=== PATIENT | female | born 1980 | race Caucasian/White ===

== ENCOUNTER 2017-01-30 08:00 | Outpatient (CLI) | payer OTHER ==
[2017-01-30 19:15] LABS: BASOPHILS % (AUTO) 0.7 %; EOSINOPHILS # (AUTO) 0.3 10^3/uL (0.0-0.7); EOSINOPHILS % (AUTO) 5.2 %; HCT - HEMATOCRIT 42.3 % (37.0-47.0); HGB - HEMOGLOBIN 14.2 g/dL (12.0-16.0); LYMPHOCYTES # (AUTO) 2.2 10^3/uL (1.5-3.5); LYMPHOCYTES % (AUTO) 38.8 %; MEAN CORPUSCULAR HGB CONC 33.6 g/dL (32.0-36.0); MEAN CORPUSCULAR VOLUME 89.1 fL (81.0-99.0); MEAN PLATELET VOLUME 8.2 fL (7.9-10.8); MONOCYTES # (AUTO) 0.6 10^3/uL (0.0-1.0); NEUTROPHILS # (AUTO) 2.6 10^3/uL (1.5-6.6); NEUTROPHILS % (AUTO) 45.3 %; RED BLOOD COUNT 4.75 10^6/uL (4.20-5.40); RED CELL DISTRIBUTION WIDTH 12.1 % (12.0-15.0); UNCORRECTED WHITE BLOOD COUNT 5.7 x10^3/uL; WHITE BLOOD COUNT 5.7 x10^3/uL (4.8-10.8)
[2017-01-30 19:20] LABS: ALBUMIN/GLOBULIN RATIO 1.3 (1.0-2.2); BILIRUBIN,TOTAL 0.6 mg/dL (0.2-1.0); BUN - BLOOD UREA NITROGEN 12 mg/dL (6-20); CALCIUM 9.2 mg/dL (8.5-10.3); CARBON DIOXIDE - CO2 27 mmol/L (21-32); CHLORIDE 104 mmol/L (101-111); CREATININE 0.7 mg/dL (0.4-1.0); GFR - MDRD 94 (>89); GLUCOSE 95 mg/dL (70-100); LIPASE 27 U/L (22-51); POTASSIUM 3.8 mmol/L (3.5-5.0); SODIUM 138 mmol/L (135-145); TOTAL PROTEIN 7.3 g/dL (6.7-8.2)
== END 2017-01-30 08:01 ==
LOC: LAB.WCP 08:00
PROVIDERS: ATTEND Family Medicine
DX: R19.7 Diarrhea, unspecified (principal)
CPT/HCPCS: 36415; 80053; 83690; 84443; 85025

== ENCOUNTER 2017-02-08 14:39 | Outpatient (CLI) | payer OTHER ==
[2017-02-08 19:44] LABS: H. PYLORIS ANTIGEN STL NEGATIVE (Negative)
== END 2017-02-08 14:40 | disposition home or self-care (01) ==
LOC: LAB.R 14:39
PROVIDERS: ATTEND Family Medicine
DX: R19.7 Diarrhea, unspecified (principal)
CPT/HCPCS: 87338

== ENCOUNTER 2017-04-25 19:15 | Emergency (ER) | payer OTHER ==
[2017-04-25 19:56] LABS: BASOPHILS # (AUTO) 0.1 10^3/uL (0.0-0.1); BASOPHILS % (AUTO) 0.5 %; EOSINOPHILS # (AUTO) 0.2 10^3/uL (0.0-0.7); EOSINOPHILS % (AUTO) 1.7 %; HGB - HEMOGLOBIN 14.6 g/dL (12.0-16.0); LYMPHOCYTES % (AUTO) 14.1 %; MEAN CORPUSCULAR HEMOGLOBIN 28.9 pg (27.0-31.0); MEAN CORPUSCULAR HGB CONC 32.8 g/dL (32.0-36.0); MEAN CORPUSCULAR VOLUME 88.1 fL (81.0-99.0); MEAN PLATELET VOLUME 7.5 fL (7.9-10.8); MONOCYTES # (AUTO) 0.8 10^3/uL (0.0-1.0); MONOCYTES % (AUTO) 5.3 %; NEUTROPHILS # (AUTO) 11.2 10^3/uL (1.5-6.6); NEUTROPHILS % (AUTO) 78.4 %; PLT - PLATELET COUNT 231 10^3/uL (130-450); RED BLOOD COUNT 5.06 10^6/uL (4.20-5.40); RED CELL DISTRIBUTION WIDTH 12.7 % (12.0-15.0); WHITE BLOOD COUNT 14.3 x10^3/uL (4.8-10.8)
[2017-04-25 20:09] LABS: ALBUMIN 4.2 g/dL (3.2-5.5); ALBUMIN/GLOBULIN RATIO 1.5 (1.0-2.2); BILIRUBIN,TOTAL 0.5 mg/dL (0.2-1.0); CALCIUM 9.3 mg/dL (8.5-10.3); CREATININE 0.6 mg/dL (0.4-1.0)
[2017-04-25] MEDS ORDERED: SODIUM CHLORIDE 0.9% 1,000 ML IV ONE (20:49)
[2017-04-25 20:59] LABS: BILIRUBIN,URINE NEGATIVE (NEGATIVE); GLUCOSE, URINE (UA) NEGATIVE (NEGATIVE); KETONES,URINE (UA) NEGATIVE (NEGATIVE); LEUKOCYTE ESTERASE, URINE NEGATIVE (NEGATIVE); NITRITE,URINE NEGATIVE (NEGATIVE); OCCULT BLOOD,URINE NEGATIVE (NEGATIVE); PH,URINE 6.5 PH (5.0-7.5); PROTEIN,URINE NEGATIVE (NEGATIVE); UROBILINOGEN,URINE 0.2 (NORMAL) E.U./dL (NORMAL)
[2017-04-25 21:00] LABS: CLARITY,URINE CLEAR (CLEAR)
[2017-04-25 21:01] LABS: HCG UR QUAL NEGATIVE
--- NOTE | 2017-04-25 21:33 | CT Report ---
EXAM: CT HEAD EXAM DATE: 04/25/2017 09:10 PM. CLINICAL HISTORY: Head trauma. Questionable seizure. COMPARISON: None. TECHNIQUE: Multiaxial CT images were obtained from the foramen magnum to the vertex. Reformats: Coron al. IV contrast: None. In accordance with CT protocol optimization, one or more of the following dose reduction techniques w ere utilized for this exam: automated exposure control, adjustment of mA and/or KV based on patient s ize, or use of iterative reconstructive technique. FINDINGS: Parenchyma: No intraparenchymal hemorrhage. No evidence of mass, midline shift, or CT findings of inf arction. Singleton-white differentiation is distinct. Extraaxial Spaces: Normal for age. No subdural or epidural collections identified. Ventricles: Normal in size and position. Sinuses and Orbits: Imaged paranasal sinuses, orbits, and mastoids show no significant abnormality. Bones: No evidence of fracture or calvarial defect. Other: None. IMPRESSION: Normal head CT. [facility] Referring Provider Line: [phone] SITE ID: [id number]
[2017-04-25 21:38] VITALS: BP 109/71
--- NOTE | 2017-04-25 21:45 | ED Physician Documentation ---
PD HPI SYNCOPE - Stated complaint Stated Complaint: PASSED OUT/MEMORY LOSS - Chief complaint Chief Complaint: Neuro - History obtained from History obtained from: Patient, Family - History of Present Illness Witnessed: Witnessed Timing - onset: Today Duration: Seconds Preceding symptoms: Diaphoresis, Light headed Associated symptoms: No: Seizure, Incontinant of urine Contributing factors: No: Recent med change Injury occurred: Fell, Head injury Similar symptoms before: No diagnosis Recently seen: Not recently seen - Additional information Additional information: Patient is a 37 year old female with a history of ibs and multiple episode of what sound like orthostatic hypotension who is presenting to the emergency department for a syncopal episode. According to patient and patient was in the bathroom having a bowel movement when she started to get dizzy and diaphoretic. Patient called out to her . He was going to get the patient up to walk her to bed when she passed out and fell backwards hitting her head on the towel rack. He states that she was out for maybe 30 seconds and her arms flexed and shook. Review of Systems Constitutional: denies: Fever, Chills Eyes: denies: Photophobia Ears: reports: Reviewed and negative Nose: reports: Reviewed and negative Throat: reports: Reviewed and negative Cardiac: denies: Chest pain / pressure, Palpitations, Pedal edema, Calf pain Respiratory: denies: Dyspnea GI: reports: Abdominal Pain, Nausea, Diarrhea. denies: Vomiting : reports: Reviewed and negative Skin: denies: Abrasion (s) Musculoskeletal: denies: Neck pain Neurologic: reports: Syncope, Head injury Immunocompromised: denies: Immunocompromised PD PAST MEDICAL HISTORY - Past Medical History Past Medical History: Yes Other Past Medical History: Syncope in the past; IBS - Past Surgical History Past Surgical History: Yes - Present Medications Home Medications: Ambulatory Orders Medication Instructions Recorded Confirmed Lactobacillus Acidophilus 1 each PO 04/25/17 [Probiotic Acidophilus] - Allergies Allergies/Adverse Reactions: Allergies Allergy/AdvReac Type Severity Reaction Status Date / Time No Known Drug Allergies Allergy Verified 04/25/17 19:28 - Social History Does the pt smoke?: No Smoking Status: Never smoker Does the pt drink ETOH?: Yes Does the pt have substance abuse?: No - Immunizations Immunizations are current?: Yes - POLST Patient has POLST: No PD ED PE NORMAL - Vitals Vital signs reviewed: Yes - General General: Alert and oriented X 3, No acute distress - Neck Neck: No bony TTP - Cardiac Cardiac: RRR, No murmur - Respiratory Respiratory: No respiratory distress - Abdomen Abdomen: Soft, Non tender, Non distended - Derm Derm: Normal color, Warm and dry, No rash - Extremities Extremities: No deformity, Normal ROM s pain, No edema, No calf tenderness / cord - Neuro Neuro: Alert and oriented X 3, sweat box attendant 2-12 intact, No motor deficit, No sensory deficit, Normal speech Eye Opening: Spontaneous Motor: Obeys Commands Verbal: Oriented GCS Score: 15 PD ED PE EXPANDED - HEENT HEENT: Atraumatic, Dry mucous membranes Results - Vitals Vitals: Vital Signs - 24 hr 04/25/17 04/25/17 04/25/17 19:17 19:48 20:15 Heart Rate 92 95 84 Respiratory 18 12 16 Rate Blood Pressure 128/89 H 110/79 108/77 O2 Saturation 100 100 100 04/25/17 04/25/17 21:37 21:52 Heart Rate 83 87 Respiratory 12 16 Rate Blood Pressure 109/71 109/71 O2 Saturation 100 100 Oxygen O2 Source Room air - EKG (time done) 1924 Rate: Rate (enter#) (72) Rhythm: NSR [place]: Normal Intervals: Normal CO QRS: Normal Ischemia: Normal ST segments Compare to prior EKG: Old EKG unavailable - Labs Labs: Laboratory Tests 04/25/17 04/25/17 04/25/17 19:29 19:50 19:50 WBC 14.3 H RBC 5.06 Hgb 14.6 Hct 44.6 MCV 88.1 MCH 28.9 MCHC 32.8 RDW 12.7 Plt Count 231 MPV 7.5 L Neut # 11.2 H Lymph # 2.0 [place] # 0.8 Eos # 0.2 Baso # 0.1 Absolute Nucleated RBC 0.00 Nucleated RBC % 0.0 Sodium 137 Potassium 3.4 L Chloride 103 Carbon Dioxide 25 Anion Gap 9.0 BUN 13 Creatinine 0.6 Estimated GFR (MDRD) 111 Glucose 105 H POC Whole Bld Glucose 83 Calcium 9.3 Total Bilirubin 0.5 AST 18 ALT 15 Alkaline Phosphatase 56 Total Protein 7.0 Albumin 4.2 Globulin 2.8 Albumin/Globulin Ratio 1.5 Lipase 15 L Urine Color Urine Clarity Urine pH Ur Specific [place] Urine Protein Urine Glucose (UA) Urine Ketones Urine Occult Blood Urine Nitrite Urine Bilirubin Urine Urobilinogen Ur Leukocyte Esterase Ur Microscopic Review Urine Culture Comments Urine HCG, Qual 04/25/17 20:50 WBC RBC Hgb Hct MCV MCH MCHC RDW Plt Count MPV Neut # Lymph # [place] # Eos # Baso # Absolute Nucleated RBC Nucleated RBC % Sodium Potassium Chloride Carbon Dioxide Anion Gap BUN Creatinine Estimated GFR (MDRD) Glucose POC Whole Bld Glucose Calcium Total Bilirubin AST ALT Alkaline Phosphatase Total Protein Albumin Globulin Albumin/Globulin Ratio Lipase Urine Color YELLOW Urine Clarity CLEAR Urine pH 6.5 Ur Specific [place] <=1.005 Urine Protein NEGATIVE Urine Glucose (UA) NEGATIVE Urine Ketones NEGATIVE Urine Occult Blood NEGATIVE Urine Nitrite NEGATIVE Urine Bilirubin NEGATIVE Urine Urobilinogen 0.2 (NORMAL) Ur Leukocyte Esterase NEGATIVE Ur Microscopic Review NOT INDICATED Urine Culture Comments NOT INDICATED Urine HCG, Qual NEGATIVE - Rads (name of study) ct head Radiology: Final report received (normal) PD MEDICAL DECISION MAKING - ED course Complexity details: reviewed old records, reviewed results, re-evaluated patient , considered differential, d/w patient, d/w family ED course: Patient was seen and examined at bedside. ekg was performed and was within normal limits. IV access was gained and labs were drawn. patient was treated with a fluid bolus. CT head was ordered due to the fall and the history of possible seizure disorder and was within normal limits. patient remained asymptomatic while in the emergency department and symptoms were likely vaso- vagal in nature. Patient and were educated on the findings and follow up. patient required no further work up and was stable for discharge with outpatient follow up. Departure - Departure Disposition: 01 Home, Self Care Clinical Impression: Vaso vagal episode Condition: Good Instructions: ED Syncope Vasovagal Follow-Up: Jesse Crowe MD [Primary Care Provider] - Within 3 Days Comments: Your diagnostics today were within normal limits. Your symptoms were likely secondary to a vaso vagal episode. It is not life threatening and doesn't normally indicate any underlying conditions. Make sure you stay well hydrated and take your time between changing positions. As far as your irregular periods go you should follow up with your OB if they don't normalize within the next few months. You may return to the emergency department at any time for new , worsening or uncontrollable symptoms. Discharge Date/Time: 04/25/17 21:53
== END 2017-04-25 21:53 | disposition home or self-care (01) ==
LOC: ED 19:15
DX: R55 Syncope and collapse (principal)
CPT/HCPCS: 36415; 70450; 80053; 81001; 81003; 81025; 83690; 85025; 87086; 93005; 96360; 99284

== ENCOUNTER 2017-09-22 18:39 | Emergency (ER) | payer OTHER ==
[2017-09-22 19:13] LABS: BASOPHILS % (AUTO) 0.5 %; EOSINOPHILS # (AUTO) 0.1 10^3/uL (0.0-0.7); EOSINOPHILS % (AUTO) 1.4 %; HGB - HEMOGLOBIN 14.6 g/dL (12.0-16.0); LYMPHOCYTES # (AUTO) 2.3 10^3/uL (1.5-3.5); LYMPHOCYTES % (AUTO) 25.1 %; MEAN CORPUSCULAR HEMOGLOBIN 30.2 pg (27.0-31.0); MEAN CORPUSCULAR VOLUME 88.7 fL (81.0-99.0); MEAN PLATELET VOLUME 7.3 fL (7.9-10.8); MONOCYTES # (AUTO) 0.6 10^3/uL (0.0-1.0); MONOCYTES % (AUTO) 7.2 %; NEUTROPHILS # (AUTO) 5.9 10^3/uL (1.5-6.6); NEUTROPHILS % (AUTO) 65.8 %; PLT - PLATELET COUNT 219 10^3/uL (130-450); RED BLOOD COUNT 4.85 10^6/uL (4.20-5.40); RED CELL DISTRIBUTION WIDTH 13.1 % (12.0-15.0)
[2017-09-22 19:27] LABS: ALBUMIN 4.5 g/dL (3.2-5.5); ALBUMIN/GLOBULIN RATIO 1.6 (1.0-2.2); BILIRUBIN,TOTAL 0.6 mg/dL (0.2-1.0); CALCIUM 9.4 mg/dL (8.5-10.3); CREATININE 0.8 mg/dL (0.4-1.0); TOTAL PROTEIN 7.4 g/dL (6.7-8.2)
--- NOTE | 2017-09-22 20:05 | XRAY Report ---
Procedure Date: 09/22/2017 Accession Number: [id number] / [id number] Procedure: XR - Chest 2 View X-Ray CPT Code: 98717 FULL RESULT: EXAM: CHEST RADIOGRAPHY EXAM DATE: 09/22/2017 07:42 PM. CLINICAL HISTORY: Chest pain, soa. COMPARISON: None. TECHNIQUE: 2 views. FINDINGS: Lungs/Pleura: No focal opacities evident. No pleural effusion. No pneumothorax. Normal volumes. Mediastinum: Heart and mediastinal contours are unremarkable. Other: None. IMPRESSION: Normal 2-view chest radiography. [facility]
[2017-09-22 20:43] VITALS: BP 105/72
[2017-09-22 20:49] LABS: BILIRUBIN,URINE NEGATIVE (NEGATIVE); GLUCOSE, URINE (UA) NEGATIVE (NEGATIVE); KETONES,URINE (UA) NEGATIVE (NEGATIVE); LEUKOCYTE ESTERASE, URINE TRACE (NEGATIVE); NITRITE,URINE NEGATIVE (NEGATIVE); OCCULT BLOOD,URINE TRACE-LYSE (NEGATIVE); PH,URINE 6.5 PH (5.0-7.5); PROTEIN,URINE NEGATIVE (NEGATIVE); UROBILINOGEN,URINE 0.2 (NORMAL) E.U./dL (NORMAL)
[2017-09-22 20:50] LABS: CLARITY,URINE CLEAR (CLEAR); HCG UR QUAL NEGATIVE
[2017-09-22 20:59] LABS: BACTERIA,URINE Rare /HPF (None Seen); RBC,URINE None Seen /HPF (0-5); SQUAMOUS EPITHELIAL CELL,UR MOD Squamous (<= Few)
[2017-09-22] MEDS ORDERED: PHENAZOPYRIDINE 100 MG TABLET PO STA (21:08)
[2017-09-22] MEDS ORDERED: SULFAMETH/TRIMETH DS 800/160 MG TABLET PO STA (21:08)
--- NOTE | 2017-09-22 21:11 | ED Physician Documentation ---
History of Present Illness - Stated complaint Stated Complaint: CHEST PX - Chief complaint Chief Complaint: Cardiac - History obtained from History obtained from: Patient, Family - History of Present Illness Timing: Today - Additonal information Additional information: patient is a 37 year old female with no significant past medical history who is presenting to the emergency department for intermittent chest pain. Patient has had the symptoms a few times before. they normally come when she is stressed out. Patient reports that she gets some tingling in her fingers as well with the symptoms. Patient denies any significant cardiac history in the past. Review of Systems Constitutional: denies: Fever, Chills Eyes: reports: Reviewed and negative Ears: reports: Reviewed and negative Cardiac: reports: Chest pain / pressure, Palpitations. denies: Pedal edema Respiratory: denies: Dyspnea, Cough GI: denies: Nausea, Vomiting : reports: Dysuria, Frequency Skin: denies: Rash, Lesions Musculoskeletal: denies: Neck pain Neurologic: denies: Generalized weakness, Focal weakness, Numbness PD PAST MEDICAL HISTORY - Past Medical History Past Medical History: Yes Psych: Anxiety - Past Surgical History Past Surgical History: Yes - Present Medications Home Medications: Ambulatory Orders Medication Instructions Recorded Confirmed Phenazopyridine HCl [Pyridium] 200 mg PO TID PRN #6 tablet 09/22/17 Sulfamethox/Trimeth 800/160 1 each PO BID #14 tablet 09/22/17 [Bactrim Ds 800/160] - Allergies Allergies/Adverse Reactions: Allergies Allergy/AdvReac Type Severity Reaction Status Date / Time No Known Drug Allergies Allergy Verified 09/22/17 18:53 - Social History Does the pt smoke?: No Smoking Status: Never smoker Does the pt drink ETOH?: Yes Does the pt have substance abuse?: No - Immunizations Immunizations are current?: Yes - POLST Patient has POLST: No PD ED PE NORMAL - Vitals Vital signs reviewed: Yes - General General: Alert and oriented X 3, No acute distress - HEENT HEENT: Atraumatic - Neck Neck: Supple, no meningeal sign - Cardiac Cardiac: RRR, No murmur - Respiratory Respiratory: No respiratory distress, Clear bilaterally - Abdomen Abdomen: Soft, Non tender, Non distended - Derm Derm: Normal color, Warm and dry, No rash - Extremities Extremities: No deformity - Neuro Neuro: Alert and oriented X 3, No motor deficit, Normal speech Eye Opening: Spontaneous - Psych Psych: Normal mood PD ED PE EXPANDED - General General: Alert, No acute distress Results - Vitals Vitals: Vital Signs - 24 hr 09/22/17 09/22/17 09/22/17 18:50 19:22 20:38 Temperature 36.6 C Heart Rate 94 102 H 90 Respiratory 18 15 18 Rate Blood Pressure 117/84 H 105/82 H 113/78 O2 Saturation 100 97 98 09/22/17 20:42 Temperature 36.5 C Heart Rate 94 Respiratory 18 Rate Blood Pressure 105/72 O2 Saturation 100 Oxygen O2 Source Room air - Labs Labs: Laboratory Tests 09/22/17 09/22/17 09/22/17 19:07 19:07 19:07 WBC 9.0 RBC 4.85 Hgb 14.6 Hct 43.0 MCV 88.7 MCH 30.2 MCHC 34.0 RDW 13.1 Plt Count 219 MPV 7.3 L Neut # (Auto) 5.9 Lymph # (Auto) 2.3 [place] # (Auto) 0.6 Eos # (Auto) 0.1 Baso # (Auto) 0.0 Absolute Nucleated RBC 0.00 Nucleated RBC % 0.0 Sodium 139 Potassium 3.4 L Chloride 104 Carbon Dioxide 26 Anion Gap 9.0 BUN 15 Creatinine 0.8 Estimated GFR (MDRD) 80 L Glucose 107 H Calcium 9.4 Total Bilirubin 0.6 AST 18 ALT 15 Alkaline Phosphatase 67 Troponin I < 0.04 Total Protein 7.4 Albumin 4.5 Globulin 2.9 Albumin/Globulin Ratio 1.6 Lipase 28 Urine Color Urine Clarity Urine pH Ur Specific [place] Urine Protein Urine Glucose (UA) Urine Ketones Urine Occult Blood Urine Nitrite Urine Bilirubin Urine Urobilinogen Ur Leukocyte Esterase Urine RBC Urine WBC Ur Squamous Epith Cells Urine Bacteria Ur Microscopic Review Urine Culture Comments Urine HCG, Qual 09/22/17 20:41 WBC RBC Hgb Hct MCV MCH MCHC RDW Plt Count MPV Neut # (Auto) Lymph # (Auto) [place] # (Auto) Eos # (Auto) Baso # (Auto) Absolute Nucleated RBC Nucleated RBC % Sodium Potassium Chloride Carbon Dioxide Anion Gap BUN Creatinine Estimated GFR (MDRD) Glucose Calcium Total Bilirubin AST ALT Alkaline Phosphatase Troponin I Total Protein Albumin Globulin Albumin/Globulin Ratio Lipase Urine Color COLORLESS Urine Clarity CLEAR Urine pH 6.5 Ur Specific [place] <=1.005 Urine Protein NEGATIVE Urine Glucose (UA) NEGATIVE Urine Ketones NEGATIVE Urine Occult Blood TRACE-LYSE Urine Nitrite NEGATIVE Urine Bilirubin NEGATIVE Urine Urobilinogen 0.2 (NORMAL) Ur Leukocyte Esterase TRACE H Urine RBC None Seen Urine WBC 4-5 Ur Squamous Epith Cells MOD Squamous H Urine Bacteria Rare Ur Microscopic Review INDICATED Urine Culture Comments NOT INDICATED Urine HCG, Qual NEGATIVE PD MEDICAL DECISION MAKING - ED course Complexity details: reviewed old records, reviewed results, re-evaluated patient , considered differential, d/w patient ED course: Patient was seen and examined at bedside. patient was well appearing and in no distress. patient's ekg was unchanged and chest x-ray was negative. Patient's diagnostics were within normal limits aside from signs of a uti. Patient was treated with bactrim and pyridium. Patient had a HEART score of 1 and perc 0. Patient's symptoms were likely in part psychological. patient and were made aware of this. Patient was given detailed discharge and follow up instructions and patient was stable for discharge with outpatient follow up. - Sepsis Event Vital Signs: Vital Signs - 24 hr 09/22/17 09/22/17 09/22/17 18:50 19:22 20:38 Temperature 36.6 C Heart Rate 94 102 H 90 Respiratory 18 15 18 Rate Blood Pressure 117/84 H 105/82 H 113/78 O2 Saturation 100 97 98 09/22/17 20:42 Temperature 36.5 C Heart Rate 94 Respiratory 18 Rate Blood Pressure 105/72 O2 Saturation 100 Oxygen O2 Source Room air Departure - Departure Disposition: 01 Home, Self Care Clinical Impression: UTI (urinary tract infection), Anxiety Condition: Good Instructions: ED UTI Cystitis Female Follow-Up: Jesse Crowe MD [Primary Care Provider] - Within 3 Days Prescriptions: Phenazopyridine HCl [Pyridium] 200 mg PO TID PRN #6 tablet PRN Reason: dysuria Sulfamethox/Trimeth 800/160 [Bactrim Ds 800/160] 1 each PO BID #14 tablet Comments: Your diagnostics today showed a developing uti, but otherwise there were no significant abnormalities. You will be on a course of antibiotics, taking your first dose today. You should follow up with your doctor if your symptoms persist. I would recommend that you follow up with your doctor for an echocardiogram for your passing out episodes. You may return to the emergency department at any time for new, worsening or uncontrollable symptoms. Discharge Date/Time: 09/22/17 21:17
== END 2017-09-22 21:17 | disposition home or self-care (01) ==
LOC: ED 18:39
DX: N39.0 Urinary tract infection, site not specified (principal); F41.9 Anxiety disorder, unspecified
CPT/HCPCS: 36415; 71046; 80053; 81001; 81025; 83690; 84484; 85025; 93005; 99283; 99284; A9270; 81003; 87086

== ENCOUNTER 2017-11-26 08:00 | Outpatient (CLI) | payer OTHER | END 2017-11-26 08:01 | disposition home or self-care (01) | LOC: LAB.R 08:00 | PROVIDERS: ATTEND Registered Nurse | DX: R10.2 Pelvic and perineal pain (principal) | CPT/HCPCS: 87086 ==

== ENCOUNTER 2017-12-03 18:46 | Outpatient (CLI) | payer OTHER ==
--- NOTE | 2017-12-04 11:57 | Ultrasound Report ---
Reason: PELVIC AND PERINEAL PAIN Procedure Date: 12/03/2017 Accession Number: [id number] / [id number] Procedure: US - Pelvic w/Transvaginal CPT Code: FULL RESULT: EXAM: PELVIC ULTRASOUND EXAM DATE: 12/03/2017 07:05 PM. CLINICAL HISTORY: Pelvic and perineal pain. COMPARISON: None. TECHNIQUE: Realtime transabdominal pelvic scan performed to identify the uterus and adnexa and as an overview of other pelvic structures, followed by transvaginal scan to provide greater detail of the uterus and adnexa, with static image documentation. FINDINGS: Uterus: 8.8 x 4.6 x 5.4 cm, volume 113 cc. Anteverted position. Normal overall size and echotexture. Masses: None. Endometrium: 13 mm. Fluid is noted within the endometrial canal. Cervix: Unremarkable. Right Ovary: 2.7 x 2.2 x 3.2 cm, volume 10 cc. Normal echotexture and blood flow. Left Ovary: 3 x 2.1 x 2.7 cm, volume 8.8 cc. Normal echotexture and blood flow. Free Fluid: None. Other: None. IMPRESSION: Correlate endometrial canal fluid to menses. [facility]
== END 2017-12-03 18:47 | disposition home or self-care (01) ==
LOC: DI 18:46
PROVIDERS: ATTEND Registered Nurse
DX: R10.2 Pelvic and perineal pain (principal)
CPT/HCPCS: 76830; 76856

== ENCOUNTER 2018-03-07 10:15 | Outpatient (CLI) | payer OTHER ==
[2018-03-07 13:11] LABS: THYROID STIMULATING HORMONE 1.13 uIU/mL (0.34-5.60)
[2018-03-07 13:39] LABS: FOLLICLE STIMULATING HORMONE 7.97 mIU/mL; LUTEINIZING HORMONE 6.05 mIU/mL
== END 2018-03-07 23:59 | disposition home or self-care (01) ==
LOC: LAB.WCP 10:15
PROVIDERS: ATTEND Family Medicine
DX: R41.1 Anterograde amnesia (principal)
CPT/HCPCS: 36415; 83001; 83002; 84443

== ENCOUNTER 2019-04-17 10:00 | Outpatient (CLI) | payer OTHER | END 2019-04-17 23:59 | disposition home or self-care (01) | LOC: LAB.R 10:00 | PROVIDERS: ATTEND Family Medicine | DX: N39.0 Urinary tract infection, site not specified (principal) | CPT/HCPCS: 87086 ==

== ENCOUNTER 2019-10-29 08:00 | Outpatient (CLI) | payer OTHER | END 2019-10-29 08:01 | disposition home or self-care (01) | LOC: COV 08:00 | PROVIDERS: ATTEND Family Medicine | DX: R05 Cough (principal); R06.02 Shortness of breath; M79.10 Myalgia, unspecified site; R53.83 Other fatigue; J02.9 Acute pharyngitis, unspecified; R43.8 Other disturbances of smell and taste; Z20.828 Contact with and (suspected) exposure to other viral communicable diseases ==

== ENCOUNTER 2019-11-06 09:10 | Outpatient (CLI) | payer OTHER ==
[2019-11-06 12:29] LABS: ALBUMIN 4.5 g/dL (3.2-5.5); ALBUMIN/GLOBULIN RATIO 1.6 (1.0-2.2); CALCIUM 9.5 mg/dL (8.5-10.3); CREATININE 0.7 mg/dL (0.4-1.0); TOTAL PROTEIN 7.3 g/dL (6.7-8.2)
== END 2019-11-06 23:59 | disposition home or self-care (01) ==
LOC: LAB.WCP 09:10
PROVIDERS: ATTEND Family Medicine
DX: B35.1 Tinea unguium (principal)
CPT/HCPCS: 36415; 80053

== ENCOUNTER 2019-12-24 08:00 | Outpatient (CLI) | payer OTHER ==
[2019-12-24 19:23] LABS: ALBUMIN 4.5 g/dL (3.2-5.5); ALBUMIN/GLOBULIN RATIO 1.6 (1.0-2.2); BILIRUBIN,TOTAL 0.8 mg/dL (0.2-1.0); CALCIUM 9.1 mg/dL (8.5-10.3); CREATININE 0.6 mg/dL (0.4-1.0); TOTAL PROTEIN 7.3 g/dL (6.7-8.2)
== END 2019-12-24 23:59 | disposition home or self-care (01) ==
LOC: LAB.WCP 08:00
PROVIDERS: ATTEND Physician Assistant
DX: Z79.899 Other long term (current) drug therapy (principal)
CPT/HCPCS: 36415; 80053

== ENCOUNTER 2021-04-13 08:00 | Outpatient (CLI) | payer OTHER | END 2021-04-13 23:59 | disposition home or self-care (01) | LOC: LAB.N 08:00 | PROVIDERS: ATTEND Family Medicine | DX: R10.9 Unspecified abdominal pain (principal) | CPT/HCPCS: 87086 ==

== ENCOUNTER 2021-04-26 16:38 | Outpatient (CLI) | payer OTHER ==
--- NOTE | 2021-04-27 08:27 | Ultrasound Report ---
PROCEDURE: Retroperitoneal INDICATIONS: FLANK PAIN TECHNIQUE: Real-time scanning was performed of the retroperitoneal organs, with image documentation. COMPARISON: None. FINDINGS: RIGHT KIDNEY: Measures 11.7 cm in length. The renal cortex thickness measures 1.5 cm. Normal contour and echotexture. Preservation of the cortical thickness and cortical medullary differe ntiation. No hydronephrosis. A 1.6 mm echogenic focus is seen, which may reflect a nonobstructing neena culus. LEFT KIDNEY: Measures 12.2 cm in length. The renal cortex thickness measures 1.6 cm. Normal contour and echotexture. Preservation of the cortical thickness and cortical medullary differe ntiation. No hydronephrosis. URINARY BLADDER: Prevoid volume: 306.5 mL. Post void volume: 15.8 mL. Both ureteral jets are visualized. OTHER: None. IMPRESSION: 1.No significant abnormality. Reviewed by: Tony Quinonez MD on 04/27/2021 8:26 AM PDT Approved by: Tony Quinonez MD on 04/27/2021 8:26 AM PDT Station ID: [id number]
== END 2021-04-26 16:39 | disposition home or self-care (01) ==
LOC: DI 16:38
PROVIDERS: ATTEND Family Medicine
DX: R10.9 Unspecified abdominal pain (principal)

== ENCOUNTER 2021-05-10 08:01 | Outpatient (CLI) | payer OTHER ==
[2021-05-10 12:44] LABS: BASOPHILS % (AUTO) 0.8 %; EOSINOPHILS # (AUTO) 0.2 10^3/uL (0.0-0.7); EOSINOPHILS % (AUTO) 4.8 %; HCT - HEMATOCRIT 45.3 % (37.0-47.0); HGB - HEMOGLOBIN 15.4 g/dL (12.0-16.0); LYMPHOCYTES # (AUTO) 1.9 10^3/uL (1.5-3.5); LYMPHOCYTES % (AUTO) 37.4 %; MEAN CORPUSCULAR HEMOGLOBIN 31.6 pg (27.0-31.0); MEAN CORPUSCULAR VOLUME 92.8 fL (81.0-99.0); MONOCYTES # (AUTO) 0.5 10^3/uL (0.0-1.0); MONOCYTES % (AUTO) 9.1 %; NEUTROPHILS # (AUTO) 2.4 10^3/uL (1.5-6.6); NEUTROPHILS % (AUTO) 47.7 %; PLT - PLATELET COUNT 205 10^3/uL (130-450); RED BLOOD COUNT 4.88 10^6/uL (4.20-5.40); RED CELL DISTRIBUTION WIDTH 11.8 % (12.0-15.0)
[2021-05-10 13:19] LABS: ALBUMIN 4.6 g/dL (3.2-5.5); ALBUMIN/GLOBULIN RATIO 1.8 (1.0-2.2); ALKALINE PHOSPHATASE 63 IU/L (42-121); ALT ALANINE AMINOTRANSFERASE 20 IU/L (10-60); AST ASPARTATE AMINOTRANSFERASE 20 IU/L (10-42); BILIRUBIN,TOTAL 1.1 mg/dL (0.2-1.0); BUN - BLOOD UREA NITROGEN 10 mg/dL (6-20); CALCIUM 9.2 mg/dL (8.5-10.3); CARBON DIOXIDE - CO2 27 mmol/L (21-32); CHLORIDE 102 mmol/L (101-111); CHOL/HDL RATIO 2.7 (<4.4); CHOLESTEROL 154 mg/dL; CREATININE 0.6 mg/dL (0.4-1.0); GFR - MDRD 109 (>89); GLUCOSE 97 mg/dL (70-100); HDL CHOLESTEROL 58 mg/dL; LDL CHOLESTEROL,CALCULATED 87 mg/dL; LDL/HDL RATIO 1.5 (<4.4); SODIUM 137 mmol/L (135-145); TOTAL PROTEIN 7.1 g/dL (6.7-8.2); TRIGLYCERIDES 46 mg/dL; VLDL CHOLESTEROL 9 mg/dL
[2021-05-10 13:26] LABS: THYROID STIMULATING HORMONE 3.33 uIU/mL (0.34-5.60)
== END 2021-05-10 08:02 | disposition home or self-care (01) ==
LOC: LAB.N 08:01
PROVIDERS: ATTEND Physician Assistant
DX: R10.9 Unspecified abdominal pain (principal); Z13.220 Encounter for screening for lipoid disorders; Z13.29 Encounter for screening for other suspected endocrine disorder
CPT/HCPCS: 36415; 80053; 80061; 82306; 83721; 84443; 85025

== ENCOUNTER 2021-06-21 15:30 | Outpatient (CLI) | payer OTHER ==
--- NOTE | 2021-07-08 08:41 | Mammography Report ---
BILATERAL DIGITAL SCREENING MAMMOGRAM 3D/2D: 06/21/2021 CLINICAL: Baseline exam Routine screening. The tissue of both breasts is heterogeneously dense. This may lower the sensitivity of mammography. There is a possible 0.7 cm oval high density asymmetry in the left breast middle depth superior regio n seen on the mediolateral oblique view only. IMPRESSION: INCOMPLETE: NEEDS ADDITIONAL IMAGING EVALUATION The possible 0.7 cm oval high density asymmetry in the left breast resembles fibroglandular tissue an d is indeterminate. Additional views with possible ultrasound are recommended. This exam was interpreted at Station ID: [id number]. NOTE: For mammograms, a report in lay terms will be sent to the patient. Approximately 15% of breast malignancies will not be visualized mammographically. In the management of a palpable breast mass, a negative mammogram must not discourage biopsy of a clinically suspicious lesion. Electronically Signed By: Ronal oMsley M.D. aty/:06/22/2021 11:20:00 ACR BI-RADS Category 0: Incomplete 3340F PARENCHYMAL PATTERN: (D) - The breast(s) demonstrate(s) heterogeneously dense fibroglandular taylor broderick. BI-RADS CATEGORY: (0) - 0 Mammo and [place] [id number] Immediate follow-up LATERALITY: (R)
== END 2021-06-21 15:31 | disposition home or self-care (01) ==
LOC: DI.N 15:30
PROVIDERS: ATTEND Physician Assistant
DX: Z12.31 Encounter for screening mammogram for malignant neoplasm of breast (principal); R92.8 Other abnormal and inconclusive findings on diagnostic imaging of breast

== ENCOUNTER 2021-07-28 15:11 | Emergency (ER) | payer OTHER ==
--- NOTE | 2021-07-28 16:06 | ED Physician Documentation ---
History of Present Illness - Stated complaint Stated Complaint: NECK,FACE PAIN - Chief complaint Chief Complaint: Heent - Additonal information Additional information: 41-year-old female presents to the emergency department for evaluation of persistent right-sided headache. States that she has a history of cluster and ocular migraines. This headache episode began about 2 months ago. Initially it was managed with Tylenol but over the last few weeks she has had a persistent pain in the right side of her face and behind her eye. There is been no nausea or vomiting. This headache episode did precede a dental event in which one of her posterior crowns fell out though it has subsequently been replaced.Patient is also reporting persistent right-sided neck pain. No dysphonia or trismus. She is typically taking Tylenol but took ibuprofen yesterday which showed improvement. There have been no fevers. No falls or trauma. No ataxia. She did follow-up with her primary care provider who had ordered an MRI though this is not scheduled for late August. The patient is going on vacation next week and wants to get the headaches managed before vacation Review of Systems Constitutional: denies: Fever, Chills Eyes: reports: Reviewed and negative Ears: reports: Reviewed and negative Throat: reports: Reviewed and negative Cardiac: reports: Reviewed and negative Respiratory: reports: Reviewed and negative GI: reports: Reviewed and negative : reports: Reviewed and negative Skin: denies: Rash, Lesions Musculoskeletal: reports: Neck pain Neurologic: reports: Headache PD PAST MEDICAL HISTORY - Past Medical History Psych: Anxiety - Past Surgical History Past Surgical History: Yes - Present Medications Home Medications: Ambulatory Orders Medication Instructions Recorded Confirmed Phenazopyridine HCl [Pyridium] 200 mg PO TID PRN #6 tablet 09/22/17 Sulfamethox/Trimeth 800/160 1 each PO BID #14 tablet 09/22/17 [Bactrim Ds 800/160] - Allergies Allergies/Adverse Reactions: Allergies Allergy/AdvReac Type Severity Reaction Status Date / Time No Known Drug Allergies Allergy Verified 07/28/21 15:30 - Social History Does the pt smoke?: No Smoking Status: Never smoker Does the pt drink ETOH?: Yes Does the pt have substance abuse?: No - Immunizations Immunizations are current?: Yes - POLST Patient has POLST: No PD ED PE NORMAL - General General: Alert and oriented X 3, No acute distress, Well developed/nourished - HEENT HEENT: Atraumatic, PERRL, EOMI, Ears normal, Moist mucous membranes, Pharynx benign (No tender anterior cervical lymphadenopathy. Full range of motion of the neck in all planes. No dysphonia). No: Dentition benign (No trismus. Upper and lower molars/crowns are intact. No gumline swelling or erythema. No posterior oropharynx erythema.) - Neck Neck: Supple, no meningeal sign, No adenopathy - Cardiac Cardiac: RRR, No murmur - Respiratory Respiratory: No respiratory distress, Clear bilaterally - Abdomen Abdomen: Normal bowel sounds, Soft, Non tender, Non distended Results - Vitals Vitals: Vital Signs - 24 hr 07/28/21 15:20 Temperature 37.2 C Heart Rate 81 Respiratory 14 Rate Blood Pressure 125/75 O2 Saturation 100 Oxygen O2 Source Room air - Labs Labs: Laboratory Tests 07/28/21 07/28/21 16:10 16:10 WBC 6.3 RBC 4.69 Hgb 15.0 Hct 43.4 MCV 92.5 MCH 32.0 H MCHC 34.6 RDW 11.6 L Plt Count 192 MPV 9.5 Neut # (Auto) 4.1 Lymph # (Auto) 1.7 [place] # (Auto) 0.4 Eos # (Auto) 0.1 Baso # (Auto) 0.0 Absolute Nucleated RBC 0.00 Nucleated RBC % 0.0 Sodium 138 Potassium 3.5 Chloride 103 Carbon Dioxide 28 Anion Gap 7.0 BUN 10 Creatinine 0.7 Estimated GFR (MDRD) 91 Glucose 118 H Calcium 9.1 Total Bilirubin 0.6 AST 16 ALT 13 Alkaline Phosphatase 58 Total Protein 7.4 Albumin 4.5 Globulin 2.9 Albumin/Globulin Ratio 1.6 Lipase 32 - Rads (name of study) CT head Radiology: Final report received (No acute intracranial process) soft tissue neck CT Radiology: Final report received (No abnormality identified) PD MEDICAL DECISION MAKING - ED course Complexity details: considered differential, d/w patient, d/w family ED course: 41 female presents emergency department for evaluation of more persistent headaches that began about 2 months ago. She does endorse a history of ocular migraines as well as a history of cluster migraines. However this headache has been constant and almost daily for 2 months. This did precede a dental infection which she lost a crown but was subsequently repaired and replaced. On exam her teeth appear to be in reasonably good repair without trismus gumline swelling. No TMJ tenderness was elicited. There is no findings of infection in the ear. She denied headache at the time of my exam in the emergency department. She did take ibuprofen last night which improved symptoms. Subsequent CT imaging of the head and soft tissue of the neck were negative. Screening CBC and electrolytes are also negative. Patient is encouraged Tylenol/ibuprofen for discomfort. Continue to follow-up for the MRI that is already been scheduled. She will see her primary care provider in follow-up. Emergent return precautions discussed Departure - Departure Disposition: Home, Self Care Clinical Impression: Right sided facial pain Headache Qualifiers: Headache type: unspecified Headache chronicity pattern: unspecified pattern Intractability: not intractable Qualified Code(s): R51.9 - Headache, unspecified Condition: Stable Record reviewed to determine appropriate education?: Yes Comments: Kavita you are seen today in the emergency department for persistent pain on the right side of your face neck and head. Symptoms began about 2 months ago after you lost your crown. You also history have a history of ocular and cluster migraines. Here in the emergency department your screening electrolytes and CBC were essentially normal. We did do a CT of the head and neck that did not show any findings of tumor or mass. There are no findings to suggest dental infection or bony erosion. Is not clear what the cause of the pain is. You seem to get better relief with ibuprofen last night and I would recommend that you continue to use this with food 2-3 times a day. Continue to follow-up with your primary care provider. You have been referred for an MRI and I think it is important that this can be completed. If the MRI does not show the cause of the headache then referral to a neurologist may be warranted.
[2021-07-28 16:17] LABS: BASOPHILS % (AUTO) 0.6 %; EOSINOPHILS # (AUTO) 0.1 10^3/uL (0.0-0.7); EOSINOPHILS % (AUTO) 1.6 %; HCT - HEMATOCRIT 43.4 % (37.0-47.0); LYMPHOCYTES # (AUTO) 1.7 10^3/uL (1.5-3.5); LYMPHOCYTES % (AUTO) 26.4 %; MEAN CORPUSCULAR HGB CONC 34.6 g/dL (32.0-36.0); MEAN CORPUSCULAR VOLUME 92.5 fL (81.0-99.0); MEAN PLATELET VOLUME 9.5 fL (7.9-10.8); MONOCYTES # (AUTO) 0.4 10^3/uL (0.0-1.0); MONOCYTES % (AUTO) 6.3 %; NEUTROPHILS # (AUTO) 4.1 10^3/uL (1.5-6.6); NEUTROPHILS % (AUTO) 64.8 %; PLT - PLATELET COUNT 192 10^3/uL (130-450); RED BLOOD COUNT 4.69 10^6/uL (4.20-5.40); RED CELL DISTRIBUTION WIDTH 11.6 % (12.0-15.0); WHITE BLOOD COUNT 6.3 x10^3/uL (4.8-10.8)
[2021-07-28 16:31] LABS: ALBUMIN 4.5 g/dL (3.2-5.5); ALBUMIN/GLOBULIN RATIO 1.6 (1.0-2.2); BILIRUBIN,TOTAL 0.6 mg/dL (0.2-1.0); CALCIUM 9.1 mg/dL (8.5-10.3); CREATININE 0.7 mg/dL (0.4-1.0); POTASSIUM 3.5 mmol/L (3.5-5.0); TOTAL PROTEIN 7.4 g/dL (6.7-8.2)
--- NOTE | 2021-07-28 16:47 | CT Report ---
PROCEDURE: HEAD WO INDICATIONS: Persistent right-sided headaches for 2 months TECHNIQUE: Noncontrast 4.5 mm thick angled axial sections acquired from the foramen magnum to the vertex. For r adiation dose reduction, the following was used: automated exposure control, adjustment of mA and/or kV according to patient size. COMPARISON: None. FINDINGS: Image quality: Excellent. CSF spaces: Basal cisterns are patent. No extra-axial fluid collections. Ventricles are normal in size and shape. Brain: No midline shift. No intracranial masses or hemorrhage. Singleton-white matter interface is norm al. Skull and face: Calvarium and visualized facial bones are intact, without suspicious lesions. Sinuses: Visualized sinuses and mastoids are clear. IMPRESSION: 1. No acute intracranial process. Reviewed by: Nusrat Akbar MD on 07/28/2021 4:45 PM PDT Approved by: Nusrat Akbar MD on 07/28/2021 4:45 PM PDT Station ID: [id number]
--- NOTE | 2021-07-28 16:59 | CT Report ---
PROCEDURE: SOFT TISSUE NECK WO INDICATIONS: Neck pain for 2 months TECHNIQUE: Non-contrast 3.0 mm axial sections acquired from the sella to the aortic arch. Additiona l oblique axial 3.0 mm sections acquired through the pharynx. 3 mm thick coronal reformats were gene rated. For radiation dose reduction, the following was used: automated exposure control, adjustment of mA and/or kV according to patient size. COMPARISON: None. FINDINGS: No mass, fluid collection, or other obvious abnormality identified. Normal unenhanced appearance of t he parotid glands, salivary glands, and thyroid gland. There is no obvious asymmetry of the upper aer odigestive tract. There are bilateral tonsilloliths noted. No acute or suspicious osseous lesion. IMPRESSION: No abnormality identified. Reviewed by: Octavio Bryson MD on 07/28/2021 4:57 PM PDT Approved by: Octavio Bryson MD on 07/28/2021 4:57 PM PDT Station ID: [id number]
[2021-07-28 17:38] VITALS: BP 114/76
== END 2021-07-28 17:42 | disposition home or self-care (01) ==
LOC: ED 15:11
DX: R51.9 Headache, unspecified (principal)
CPT/HCPCS: 36415; 80053; 83690; 85025; 99284

== ENCOUNTER 2021-08-30 09:43 | Outpatient (CLI) | payer OTHER ==
--- NOTE | 2021-08-30 18:18 | MRI Report ---
PROCEDURE: MRI brain without contrast INDICATIONS: HEADACHE TECHNIQUE: Noncontrast axial T1 spin echo, axial T2 fast spin echo, sagittal and axial FLAIR, coronal T2 fast sp in echo, axial gradient echo, axial diffusion and ADC through the brain. COMPARISON: None. FINDINGS: Image quality: Excellent. CSF Spaces: Basal cisterns are patent. No extra-axial fluid collections. Ventricles are normal in size and shape. Brain: No intracranial masses or hemorrhage. Singleton/white matter interface is normal. Brainstem appe ars normal. Diffusion-weighted images demonstrate no acute infarct. Normal intravascular flow voids are present. There is fullness in the pituitary gland with slight heterogenous noted on several images. Skull and face: Calvarium has normal marrow signal. Orbits appear normal. Sinuses: Sinuses and mastoids are clear. IMPRESSION: 1. Irregular pituitary gland, partially imaged. Consider follow-up dedicated MRI sella with and witho ut contrast for evaluation of possible underlying microadenoma Reviewed by: Juan Luis Vallejo MD on 08/30/2021 5:17 PM BING Approved by: Juan Luis Vallejo MD on 08/30/2021 5:17 PM AKALBERT Station ID: [id number]
== END 2021-08-30 09:44 | disposition home or self-care (01) ==
LOC: DI 09:43
PROVIDERS: ATTEND Physician Assistant
DX: G44.89 Other headache syndrome (principal)

== ENCOUNTER 2021-09-02 13:04 | Outpatient (CLI) | payer OTHER ==
[2021-09-02 19:00] LABS: PROLACTIN 5.98 ng/mL
[2021-09-02 19:22] LABS: FOLLICLE STIMULATING HORMONE 7.11 mIU/mL
[2021-09-02 19:23] LABS: LUTEINIZING HORMONE 7.1 mIU/mL
== END 2021-09-02 13:05 | disposition home or self-care (01) ==
LOC: LAB.N 13:04
PROVIDERS: ATTEND Physician Assistant
DX: E23.6 Other disorders of pituitary gland (principal)
CPT/HCPCS: 36415; 83001; 83002; 84146; 84305

== ENCOUNTER 2021-10-24 17:03 | Outpatient (CLI) | payer OTHER ==
--- NOTE | 2021-10-25 10:58 | Ultrasound Report ---
PROCEDURE: Ext Limited Non Vascular INDICATIONS: GANGLION CYST OF RIGHT WRIST TECHNIQUE: Real-time scanning was performed of the right wrist, with image documentation. COMPARISON: None. FINDINGS: A simple anechoic cyst is seen at the area of interest at the dorsal right wrist measuring 1.2 x 0.7 x 1.4 cm without internal vascularity. IMPRESSION: Simple appearing 1.4 cm fluid collection is seen in the dorsal right wrist corresponding to the palpable abnormality, most likely a ganglion cyst. Reviewed by: Zeyad Hill MD on 10/25/2021 10:56 AM PDT Approved by: Zeyad Hill MD on 10/25/2021 10:56 AM PDT Station ID: [id number]
== END 2021-10-24 17:04 | disposition home or self-care (01) ==
LOC: DI 17:03
PROVIDERS: ATTEND Physician Assistant
DX: M67.431 Ganglion, right wrist (principal)

== ENCOUNTER 2021-11-07 07:44 | Outpatient (CLI) | payer OTHER ==
[2021-11-07 12:54] LABS: ALBUMIN 4.9 g/dL (3.2-5.5); BILIRUBIN,TOTAL 0.9 mg/dL (0.2-1.0); CALCIUM 9.5 mg/dL (8.5-10.3); CREATININE 0.7 mg/dL (0.4-1.0); TOTAL PROTEIN 7.4 g/dL (6.7-8.2)
[2021-11-08 07:09] LABS: VITAMIN D 25-HYDROXY 35.9 ng/mL (30.0-100.0)
== END 2021-11-07 07:45 | disposition home or self-care (01) ==
LOC: LAB.N 07:44
PROVIDERS: ATTEND Physician Assistant
DX: R79.9 Abnormal finding of blood chemistry, unspecified (principal); D35.2 Benign neoplasm of pituitary gland; E55.9 Vitamin D deficiency, unspecified; Z51.81 Encounter for therapeutic drug level monitoring
CPT/HCPCS: 36415; 80053; 82306; 84305

== ENCOUNTER 2021-11-15 08:00 | Outpatient (CLI) | payer OTHER ==
--- NOTE | 2021-11-15 16:14 | XRAY Report ---
PROCEDURE: Wrist 3 View RT INDICATIONS: RIGHT WRIST CYST TECHNIQUE: 3 views of the wrist were acquired. COMPARISON: None FINDINGS: Bones: No fractures or dislocations. No suspicious bony lesions. Soft tissues: No suspicious soft tissue calcifications. Ill-defined lucency is noted within the sub cutaneous tissues immediately adjacent to the metallic marker indicating area of concern. It measures approximately 5 x 3 mm. IMPRESSION: Lucency within the subcutaneous tissues along the dorsal surface of the wrist as described above. It is overall nonspecific. While this could represent a cyst, other etiologies cannot be excluded. If co ncern persists, MRI is recommended. Reviewed by: Nusrat Akbar MD on 11/15/2021 4:13 PM PDT Approved by: Nusrat Akbar MD on 11/15/2021 4:13 PM PDT Station ID: [id number]
== END 2021-11-15 23:59 | disposition home or self-care (01) ==
LOC: DI.WOS 08:00
PROVIDERS: ATTEND Physician Assistant Surgical
DX: M67.431 Ganglion, right wrist (principal)

== ENCOUNTER 2023-03-18 13:34 | Outpatient (CLI) | payer OTHER ==
--- NOTE | 2023-03-18 20:19 | Ultrasound Report ---
PROCEDURE: Extremity Soft Tissue Limited INDICATIONS: FINGER NODULE TECHNIQUE: Real-time scanning was performed of the right index finger, with image documentation. COMPARISON: None. FINDINGS: In the volar aspect of the right index finger, there is an anechoic focus measuring 0.4 x 0.3 x 0.3 cm. IMPRESSION: In the volar aspect of the right index finger, there is an anechoic focus measuring 0.4 x 0.3 x 0.3 c m. Findings likely represent a ganglion cyst. Reviewed by: Nevin Rosales MD on 03/18/2023 8:18 PM PST Approved by: Nevin Rosales MD on 03/18/2023 8:18 PM PST Station ID: [id number]
== END 2023-03-18 13:35 | disposition home or self-care (01) ==
LOC: DI 13:34
PROVIDERS: ATTEND Physician Assistant
DX: R22.31 Localized swelling, mass and lump, right upper limb (principal)